=== PATIENT | female | born 1955 | race African-American/Black ===

== ENCOUNTER 2020-08-28 05:25 | Day surgery (SDC) | payer OTHER ==
[2020-08-25 12:34] VITALS: BMI 27.3
[2020-08-28] MEDS ORDERED: KETOROLAC TROMETHAMINE 30 MG/1 ML VIAL ONE (12:45)
[2020-08-28 14:28] VITALS: BP 121/54; PULSE 60; TEMP 98
== END 2020-08-28 14:29 | disposition home or self-care (01) ==
LOC: JASU-SURG 05:25
PROVIDERS: ATTEND Urology
PROC: 0TF4XZZ Fragmentation in Left Kidney Pelvis, External Approach (ICD-10-PCS; principal; 2020-08-28 15:30)
DX: N20.0 Calculus of kidney (principal)

== ENCOUNTER 2022-01-28 04:20 | Day surgery (SDC) | payer OTHER ==
[2022-01-24 14:48] VITALS: BMI 28.3
[2022-01-28] MEDS ORDERED: PROPOFOL 20 ML ONE (09:57)
[2022-01-28] MEDS ORDERED: MIDAZOLAM HCL 2 MG/2 ML SINGLE DOSE VIAL ONE (09:57)
[2022-01-28 12:14] VITALS: BP 102/56; PULSE 58; TEMP 97
== END 2022-01-28 12:14 | disposition home or self-care (01) ==
LOC: JASU-SURG 04:20
PROVIDERS: ATTEND Urology
PROC: 0TF3XZZ Fragmentation in Right Kidney Pelvis, External Approach (ICD-10-PCS; principal; 2022-01-28 10:30)
DX: N20.0 Calculus of kidney (principal)

== ENCOUNTER 2022-06-17 04:08 | Day surgery (SDC) | payer OTHER ==
[2022-06-12 15:07] VITALS: BMI 26.4
[2022-06-17] MEDS ORDERED: MIDAZOLAM HCL 2 MG/2 ML SINGLE DOSE VIAL ONE (09:58)
[2022-06-17] MEDS ORDERED: ACETAMINOPHEN 500 MG TABLET (FP) PO PRN (11:04)
[2022-06-17] MEDS ORDERED: oxyCODONE HCL 5 MG TABLET PO PRN (11:04)
[2022-06-17] MEDS ORDERED: ONDANSETRON 4 MG/2 ML VIAL IVPUSH PRN (11:04)
[2022-06-17] MEDS ORDERED: LACTATED RINGERS SOLUTION 1,000 ML IV SCH (11:15)
[2022-06-17 11:24] VITALS: RESP 20
[2022-06-17 12:31] VITALS: BP 122/57; PULSE 70; TEMP 97.1
== END 2022-06-17 13:13 | disposition home or self-care (01) ==
LOC: JASU-SURG 04:08
PROVIDERS: ATTEND Urology
PROC: 0TF4XZZ Fragmentation in Left Kidney Pelvis, External Approach (ICD-10-PCS; principal; 2022-06-17 10:32)
DX: N20.0 Calculus of kidney (principal)

== ENCOUNTER 2023-01-03 12:25 | Emergency (ER) | payer OTHER ==
[2023-01-03 12:33] VITALS: RESP 18; TEMP 98.1; BMI 26.4
[2023-01-03 14:04] LABS: URINE APPEARANCE CLEAR; URINE BILIRUBIN NEGATIVE (NEGATIVE); URINE COLOR YELLOW; URINE GLUCOSE (UA) NEGATIVE (NEGATIVE); URINE KETONE NEGATIVE (NEGATIVE); URINE LEUK ESTERASE NEGATIVE (NEGATIVE); URINE NITRITE NEGATIVE (NEGATIVE); URINE PROTEIN NEGATIVE (NEGATIVE); URINE UROBILINOGEN 0.2 mg/dL (0.2-1.0)
[2023-01-03] MEDS ORDERED: KETOROLAC TROMETHAMINE 15 MG/ML VIAL IVPUSH ONE (14:26)
[2023-01-03] MEDS ORDERED: KETOROLAC TROMETHAMINE 15 MG/ML VIAL ONE (15:17)
[2023-01-03 16:47] LABS: BASO % 0.3 % (0-2.0); EOS % 2.2 % (0-4.5); HEMATOCRIT 32.6 % (32.4-45.2); HEMOGLOBIN 10.7 GM/dL (10.7-15.3); LYMPH % 29.3 % (8-40); MCH 30.4 pg (25.7-33.7); MCHC 32.9 g/dl (32.0-36.0); MEAN CELL VOLUME 92.3 fl (80-96); MEAN PLT VOLUME 8.3 fl (7.5-11.1); MONO % 9.1 % (3.8-10.2); NEUT % 59.1 % (42.8-82.8); PLATELET COUNT 228 10^3/uL (134-434); RBC 3.53 M/mm3 (3.60-5.2); RDW 13.7 % (11.6-15.6); WHITE BLOOD COUNT 4.5 K/mm3 (4.0-10.0)
[2023-01-03 17:09] LABS: ALBUMIN 3.6 g/dl (3.4-5.0); BLOOD UREA NITROGEN 13.4 mg/dL (7-18)
[2023-01-03 17:12] LABS: CREATININE 0.7 mg/dL (0.55-1.3)
[2023-01-03 17:14] LABS: BILIRUBIN,TOTAL 0.4 mg/dL (0.2-1); TOT PROT 6.8 g/dl (6.4-8.2)
[2023-01-03 17:29] VITALS: BP 120/62; PULSE 80
== END 2023-01-03 17:30 | disposition home or self-care (01) ==
LOC: JER 12:25
PROC: 3E033GC Introduction of Other Therapeutic Substance into Peripheral Vein, Percutaneous Approach (ICD-10-PCS; principal; 2023-01-03)
DX: R10.9 Unspecified abdominal pain (principal); R30.0 Dysuria
CPT/HCPCS: 36415; 74176-TC; 80053; 81003; 85025; 87077; 87086; 96374; 99285-25

== ENCOUNTER 2023-03-21 08:55 | Emergency (ER) | payer OTHER ==
[2023-03-21 09:05] VITALS: BP 130/57; PULSE 73; RESP 18; TEMP 98.4; BMI 26.4
== END 2023-03-21 10:43 | disposition home or self-care (01) ==
LOC: JERFT 08:55
DX: J02.9 Acute pharyngitis, unspecified (principal); J31.0 Chronic rhinitis; H65.90 Unspecified nonsuppurative otitis media, unspecified ear; R05.9 Cough, unspecified; R50.9 Fever, unspecified; R53.83 Other fatigue; R09.81 Nasal congestion; R63.0 Anorexia; R51.9 Headache, unspecified; R42 Dizziness and giddiness; Z20.822 Contact with and (suspected) exposure to COVID-19
CPT/HCPCS: 0241U-QW; 99283-25

== ENCOUNTER 2023-03-23 10:30 | Emergency (ER) | payer OTHER ==
[2023-03-23 10:45] VITALS: BP 124/73; PULSE 93; RESP 18; TEMP 98.2; BMI 26.4
[2023-03-23] MEDS ORDERED: ACETAMINOPHEN 500 MG TABLET (FP) PO ONE (11:04)
[2023-03-23] MEDS ORDERED: ACETAMINOPHEN 500 MG TABLET (FP) ONE (11:16)
== END 2023-03-23 12:04 | disposition home or self-care (01) ==
LOC: JERFT 10:30 → JER 10:30 → JERFT 12:04
DX: M25.512 Pain in left shoulder (principal); W01.190A Fall on same level from slipping, tripping and stumbling with subsequent striking against furniture, initial encounter
CPT/HCPCS: 71046-TC-FY; 73030-TC-LT-FY; 99284-25

== ENCOUNTER 2023-05-28 20:46 | Emergency (ER) | payer OTHER ==
[2023-05-28 20:53] VITALS: BP 134/74; PULSE 82; RESP 18; TEMP 98.7; BMI 26.4
== END 2023-05-28 22:14 | disposition home or self-care (01) ==
LOC: JERFT 20:46 → JER 20:46 → JERFT 22:14
DX: S92.912A Unspecified fracture of left toe(s), initial encounter for closed fracture (principal); W22.8XXA Striking against or struck by other objects, initial encounter
CPT/HCPCS: 73630-TC-LT; 99283-25

== ENCOUNTER 2023-07-03 12:02 | Emergency (ER) | payer OTHER ==
[2023-07-03 12:07] VITALS: BP 120/71; PULSE 75; RESP 16; TEMP 98.3; BMI 26.4
[2023-07-03] MEDS ORDERED: KETOROLAC TROMETHAMINE 30 MG/1 ML VIAL IM ONE (12:17)
[2023-07-03] MEDS ORDERED: KETOROLAC TROMETHAMINE 30 MG/1 ML VIAL ONE (12:47)
== END 2023-07-03 13:21 | disposition home or self-care (01) ==
LOC: JERFT 12:02
PROC: 3E0233Z Introduction of Anti-inflammatory into Muscle, Percutaneous Approach (ICD-10-PCS; principal; 2023-07-03)
DX: S49.92XA Unspecified injury of left shoulder and upper arm, initial encounter (principal); M79.602 Pain in left arm; W18.39XA Other fall on same level, initial encounter
CPT/HCPCS: 73030-TC-LT-FY; 96372; 99284-25

== ENCOUNTER 2023-10-05 11:12 | Emergency (ER) | payer OTHER ==
[2023-10-05 11:21] VITALS: TEMP 98.4; BMI 26.4
[2023-10-05] MEDS ORDERED: guaiFENesin/D-METHORPHAN HB 10 ML UNIT-DOSE CUPS PO ONE (12:18)
[2023-10-05] MEDS ORDERED: guaiFENesin/D-METHORPHAN HB 10 ML UNIT-DOSE CUPS ONE (12:31)
[2023-10-05 13:41] VITALS: BP 115/75; PULSE 82; RESP 16
== END 2023-10-05 13:41 | disposition home or self-care (01) ==
LOC: JERFT 11:12 → JER 11:12 → JERFT 13:41
DX: R05.9 Cough, unspecified (principal); R09.81 Nasal congestion; R09.82 Postnasal drip; R07.2 Precordial pain; M54.9 Dorsalgia, unspecified; J00 Acute nasopharyngitis [common cold]; Z20.822 Contact with and (suspected) exposure to COVID-19
CPT/HCPCS: 0241U-QW; 71046-TC-FY; 99284-25

== ENCOUNTER 2023-10-31 11:21 | Emergency (ER) | payer OTHER ==
[2023-10-31 11:37] VITALS: BP 106/55; PULSE 73; RESP 16; TEMP 98.5; BMI 26.4
[2023-10-31] MEDS ORDERED: ACETAMINOPHEN 325 MG TABLET (FP) PO ONE (11:56)
[2023-10-31] MEDS ORDERED: ACETAMINOPHEN 325 MG TABLET (FP) ONE (12:15)
== END 2023-10-31 13:10 | disposition home or self-care (01) ==
LOC: JERFT 11:21
DX: J02.9 Acute pharyngitis, unspecified (principal); R09.89 Other specified symptoms and signs involving the circulatory and respiratory systems; R05.9 Cough, unspecified; J06.9 Acute upper respiratory infection, unspecified; B97.89 Other viral agents as the cause of diseases classified elsewhere; Z20.822 Contact with and (suspected) exposure to COVID-19
CPT/HCPCS: 0241U-QW; 99283-25

== ENCOUNTER 2024-05-31 04:08 | Day surgery (SDC) | payer OTHER ==
[2024-05-28 12:16] VITALS: BMI 26.8
[2024-05-31 07:59] VITALS: RESP 20
[2024-05-31] MEDS ORDERED: MIDAZOLAM HCL 2 MG/2 ML SINGLE DOSE VIAL ONE (09:22)
[2024-05-31] MEDS ORDERED: ONDANSETRON 4 MG/2 ML VIAL ONE (09:23)
[2024-05-31 10:41] VITALS: TEMP 97.1
[2024-05-31 11:53] VITALS: BP 117/42; PULSE 54
== END 2024-05-31 14:32 | disposition home or self-care (01) ==
LOC: JASU-SURG 04:08
PROVIDERS: ATTEND Urology
PROC: 0TF4XZZ Fragmentation in Left Kidney Pelvis, External Approach (ICD-10-PCS; principal; 2024-05-31 10:00)
DX: N20.0 Calculus of kidney (principal)